=== PATIENT | female | born 1995 | race Hispanic/Latino ===

== ENCOUNTER 2019-04-18 07:15 | Outpatient (CLI) | payer OTHER ==
--- NOTE | 2019-04-18 09:26 | ULT ---
FOCUSED ULTRASOUND OF LEFT BREAST: Date: 04/18/19 COMPARISON: None. HISTORY: 23-year-old female reporting with a palpable abnormality in the left breast. Of note, the patient is unable to palpate an abnormality at this time. FINDINGS: Focused ultrasound of the left breast at the 2 o'clock position, in the region of concern stated by t he patient, is unremarkable. No mass or abnormal shadowing. IMPRESSION: Unremarkable focused ultrasound of the left breast. Negative imaging should not delay biopsy of a cli nically suspicious abnormality. POS: OFF
== END 2019-04-18 07:16 | disposition home or self-care (01) ==
LOC: BICULT 07:15
PROVIDERS: ATTEND Family Medicine
DX: N63.20 Unspecified lump in the left breast, unspecified quadrant (principal)

== ENCOUNTER 2019-07-27 17:38 | Emergency (ER) | payer OTHER ==
[2019-07-27] MEDS ORDERED: Acetaminophen 325 MG TAB ONE (18:38)
--- NOTE | 2019-07-27 19:12 | RAD ---
LEFT LITTLE FINGER THREE VIEWS: 07/27/19 HISTORY: Pinkie pain and swelling, status post trauma. There is a slightly obliquely oriented fracture of the base of the proximal phalanx of the little fin gustavo. Fracture is not displaced. IMPRESSION: Obliquely oriented base of proximal phalanx little finger fracture. POS: [place]
== END 2019-07-27 19:45 ==
LOC: ERS 17:38 → EEVIPCON 17:38 → ERS 19:45
DX: S62.617A Displaced fracture of proximal phalanx of left little finger, initial encounter for closed fracture (principal); J45.909 Unspecified asthma, uncomplicated; F17.210 Nicotine dependence, cigarettes, uncomplicated; W22.8XXA Striking against or struck by other objects, initial encounter; Y93.6A Activity, physical games generally associated with school recess, summer camp and children
CPT/HCPCS: 29125